=== PATIENT | female | born 1965 | race Caucasian/White ===

== ENCOUNTER 2023-08-10 19:15 | Emergency (ER) | payer MEDICARE, BC, SELFPAY ==
[2023-08-10] VITALS (9 sets, daily range): BP systolic 103–128; BP diastolic 52–83
--- NOTE | 2023-08-10 19:29 | ED.GENMED ---
History of Present Illness
General
Chief Complaint: Allergic Reaction
Source: patient and spouse
Time Seen by Provider: 08/10/23 19:21
Travel History
Have you had any contact with someone who has COVID-19?: No
Do you have any symptoms of coronavirus? Fever > 100 degrees, chills, cough, shortness of breath, sore throat, loss of taste or smell, muscle aches, or headache?: No
History of Present Illness
History of Present Illness:
57-year-old female presents to the emergency room complaining of an allergic reaction. Patient states that she started taking Bactrim for urinary tract infection a couple days ago. Last dose was an hour ago. She began to feel like her face was
burning and she was having tightness in her throat this afternoon. Symptoms progressed after she took the dose this evening. Patient has had allergic reactions to bee stings in the past and states what she is experiencing now feels like that.
Past History
Past History
ED Past Medical History: GERD, Hypercholesterolemia, Hypothyroidism, Psychiatric (Presumed conversion disorder. Bipolar.) and Other (Complicated migraine, kidney stone years ago, epilepsy (?))
ED Past Surgical History: Appendectomy, Gynecological (Hysterectomy 6 years ago. Bladder surgery (ureters ' reimplanted when I was [age].') x 1. Appendectomy as a child.) and Orthopedic (Reconstruction both feet age 17. valgus
deformities.)
Social History
Tobacco: Smoker (2 packs a week)
Alcohol: None
Drug: None
Personal:
Living: with family
Employment: Disabled (had a 'I stroke a few years ago')
Family History
Family History: CAD and Other (Dad with prostate cancer mother with leukemia)
Phy Exam
Physical Exam
Physical Exam:
General: Awake, Alert, Oriented X3. Mildly anxious
Vitals: unremarkable
Head: Atraumatic
Eyes: Pupils equal, EOMI
Throat: Airway intact, no exudates, no angioedema
Neck: Trachea midline
Lungs: Clear and equal b/l
Heart: Regular rate, no murmurs
Abd: Soft, Nontender, No pulsatile mass
Neuro: Nonfocal
Skin: Warm, dry, erythematous
Extremities: pulses equal b/l, no edema
Course
Orders/Labs/Results
Orders:
Orders
08/10/23 19:28
Electrocardiogram (*1) Stat
Reason for Study: Other
Other Reason for Exam: Allergy
Cardiac Monitoring- Treatment ONCE
EKG- Treatment ONCE
0.9% Sodium Chloride 500 ml [Nss] 500 ml IV BOLUS
Dexamethasone Sod Phosphate [Decadron] 10 mg IV NOW STA
Diphenhydramine [Benadryl] 50 mg IV NOW STA
EPINEPHrine PF [Adrenalin] 0.3 mg IM NOW STA
Famotidine [Pepcid] 20 mg IV NOW STA
Vital Signs
Initial and Last Documented VS:
Initial Vital Signs
Temp Pulse Resp BP Pulse Ox
98.3 F 88 20 116/83 99
08/10/23 19:25 08/10/23 19:25 08/10/23 19:25 08/10/23 19:25 08/10/23 19:25
Last Documented Vital Signs
Temp Pulse Resp BP Pulse Ox
98.2 F 78 18 122/68 99
08/10/23 22:10 08/10/23 22:10 08/10/23 22:10 08/10/23 22:10 08/10/23 22:10
MDM/Problems Addressed
Differential Diagnosis Includes:
Allergic reaction, anaphylaxis
MDM/Problems Addressed:
Patient had significant proving of her symptoms with treatment here. She was observed for couple hours without recurrence. Patient discharged on prednisone. Continue Benadryl. EpiPen also prescribed.
*Pulse Oximetry
Patient hypoxic: no
*EKG
Interpreted by ED Provider?: Yes
Interpretation: normal
Heart Rate: 73
Rate: normal
Rhythm: sinus
Ischemia: no ischemia
*Cattle Trader Interpretation
Rate: normal
Interpretation: normal
Rhythm: sinus
*Critical Care Note
Total Time (30-74mins, 75-104mins- exclusive of procedures): Not Applicable
ED Attending Note
-
Portions of this chart may have been created with voice recognition software.� Occasional wrong word or��sound alike� substitutions may have occurred due to the inherent limitations of voice recognition software.
Discharge Plan
Departure
Patient Disposition: Home (Routine Discharge)
Date of Disposition: 08/10/23
Time of Disposition: 21:38
Patient with high blood pressure during this ER visit?: No
Condition: Good
Discharge Problem:
Allergic reaction
Instructions: Allergic Reaction ED
Prescriptions:
New
prednisone 20 mg tablet
40 mg PO DAILY Qty: 8 0RF
epinephrine [EpiPen] 0.3 mg/0.3 mL auto-injector
0.3 mg IM ONCE PRN (Reason: anaphylaxis) Qty: 2 0RF
No Action
phenazopyridine [Pyridium] 100 mg tablet
100 mg PO TID PRN (Reason: pain) Qty: 6 0RF
ascorbic acid (vitamin C) [Vitamin C] 500 mg Tablet
500 mg PO DAILY
amitriptyline 10 mg Tablet
20 mg PO HS
levothyroxine 112 mcg Tablet
112 mcg PO MOTUWETHFRSA
[place] 3 Capsule
1,000 mg PO QID
rosuvastatin 20 mg Tablet
20 mg PO DAILY
zinc 50 mg Capsule
50 mg PO DAILY
fenofibrate 150 mg Capsule
145 mg PO DAILY
omeprazole 20 mg Tablet,Delayed Release (Dr/Ec)
20 mg PO DAILY
cholecalciferol (vitamin D3) [Vitamin D3] 50 mcg (2,000 unit) Capsule
100 mcg PO DAILY
mecobalamin (vitamin B12) 1,000 mcg Tablet,Chewable
1,000 mcg PO DAILY
Referrals:
NONE,* [Active] -
Stand Alone Forms: Return to Work
Activity Restrictions/Additional Instructions:
Stop the Bactrim. Call your doctor tomorrow to have them call in a new antibiotic based on their culture results.
Interventions
Interventions:
*Risk Screen - Suicide Last Done: 08/10/23 19:25
*General Assessment Last Done: 08/10/23 19:25
*Neglect/Abuse Screening Last Done: 08/10/23 19:25
*Nursing Disposition Last Done: 08/10/23 22:12
ED- Cardiac Assessment Last Done: 08/10/23 19:33
ED- Pulmonary Assessment Last Done: 08/10/23 19:33
ED-Skin Assessment Last Done: 08/10/23 19:33
Discharge Date and Time
Discharge Date/Time: 08/10/23 22:13
[2023-08-10] MEDS: BENADRYL 50 MG IV (19:37)
[2023-08-10] MEDS: PEPCID 20 MG IV (19:37)
[2023-08-10] MEDS: DECADRON 10 MG IV (19:37)
[2023-08-10] MEDS: ADRENALIN 0.299999999999999989 MG IM (19:37)
[2023-08-10] MEDS: NSS 500 IV (19:40)
== END 2023-08-10 22:13 | disposition home or self-care (01) ==
LOC: EMR 19:15
PROVIDERS: EMERGENCY PHYSICIAN Emergency Medicine; FAMILY PHYSICIAN Family Medicine
DX: T78.40XA Allergy, unspecified, initial encounter (principal); X58.XXXA Exposure to other specified factors, initial encounter; F17.210 Nicotine dependence, cigarettes, uncomplicated
CPT/HCPCS: 99284; 96374; 96375 ×2; 96372; 93005

== ENCOUNTER 2023-10-25 01:47 | Emergency (ER) | payer MEDICARE, BC, SELFPAY ==
[2023-10-25 01:54] VITALS: BP 131/62
[2023-10-25 02:24] VITALS: BP 135/69
[2023-10-25 02:25] VITALS: BMI 28.2
[2023-10-25 02:38] LABS: Urine Albumin Trace (Neg - Trace); Urine Bilirubin Negative (Negative); Urine Character Slightly Cloudy (Clear); Urine Color Straw; Urine Glucose Negative (Negative); Urine Ketone Negative (Negative); Urine Leukocyte 2+ (Negative); Urine Nitrite Negative (Negative); Urine Occult Blood 4+ (Negative); Urine Urobilinogen Negative (Neg - 1+)
[2023-10-25 02:44] LABS: Urine White Cell >100 /HPF (0-5)
[2023-10-25 02:45] LABS: Urine Bacteria Moderate (Negative)
[2023-10-25 03:07] VITALS: BP 127/72
--- NOTE | 2023-10-25 03:10 | ED.GENMED ---
Addendum entered and electronically signed by Preeti Kendall PA-C 10/28/23 07:14:
urine culture e coli leon sensitivie on cefdinir no treatment chnage
Original Note:
History of Present Illness
General
Chief Complaint: Urinary Symptoms
Source: patient and previous hospital records
Exam Limitations: none
Time Seen by Provider: 10/25/23 02:14
Nursing documentation reviewed up to this point in time: agreed with
Travel History
Have you had any contact with someone who has COVID-19?: No
Do you have any symptoms of coronavirus? Fever > 100 degrees, chills, cough, shortness of breath, sore throat, loss of taste or smell, muscle aches, or headache?: No
History of Present Illness
History of Present Illness:
This is a 58-year-old woman with history of interstitial cystitis, InterStim in place, remote history of bladder surgery with reimplantation of ureters as a child. She does suffer with intermittent urinary tract infections which overall have been
markedly improved with cranberry tablet supplementation. She follows sporadically with urology.
She complains of her typical UTI symptoms including urinary frequency, dysuria, urgency that began yesterday, worse tonight. She denies flank pain, no fever nor chills, no nausea nor vomiting, no diarrhea or constipation.
Previous UTI August of this year.
She began taking Uribel yesterday with mild improvement in dysuria but continues with urinary frequency and urgency.
Past History
Past History
ED Past Medical History: GERD, Hypercholesterolemia, Hypothyroidism, Psychiatric (Presumed conversion disorder. Bipolar.) and Other (Complicated migraine, kidney stone years ago, epilepsy (?))
ED Past Surgical History: Appendectomy, Gynecological (Hysterectomy 6 years ago. Bladder surgery (ureters ' reimplanted when I was [age].') x 1. Appendectomy as a child.) and Orthopedic (Reconstruction both feet age 17. valgus
deformities.)
Social History
Tobacco: Former smoker (2 packs a week)
Alcohol: None
Drug: None
Personal:
Living: with family
Employment: Disabled (had a 'I stroke a few years ago')
Family History
Family History: CAD and Other (Dad with prostate cancer mother with leukemia)
Phy Exam
Physical Exam
Physical Exam:
GENERAL: 58-year-old female appears her stated age, bright and alert, pleasant, appears in no acute distress. is accompanying.
EYE: anicteric
NECK: Supple, nontender, no meningismus, no significant adenopathy.
ENT: oral mucosa is moist. No rhinorrhea.
CARDIAC: Regular rate and rhythm. no murmur.
LUNGS: Clear breath sounds bilaterally, no acute respiratory distress, no wheezes/rales/rhonchi
ABDOMEN: Soft, nondistended, without focal tenderness, no r/g, no cvat. normoactive BS.
NEUROLOGICAL: Alert and oriented x3, no focal neuro deficits. Gait is steady.
SKIN: Warm and dry, normal color, skin intact. No rash.
MUSCULOSKELETAL: No C/C/E. peripheral pulses are full and equal b/l. No palpable tenderness.
PSYCH: Normal and appropriate interaction.
Course
Orders/Labs/Results
Orders:
Orders
10/25/23 02:02
Urinalysis Reflex To Culture Urgent
Date Specimen was Collected: 10/25/23
Time Specimen was Collected: 02:00
Urine Microscopic Reflex Cult Urgent
Urine Culture Urgent
TOBY Source: U
Specimen Description:
Date Specimen was Collected: 10/25/23
Time Specimen was Collected: 02:00
10/25/23 03:09
Cefdinir [Omnicef] 300 mg PO NOW STA
Abnormal Lab Results
10/25/23
02:02
Ur Occult Blood Reflex 4+ A
(Negative)
Leukocyte Esterase Rfl 2+ A
(Negative)
Urine RBC 3-6 A /HPF
(0-2)
Urine WBC (Reflex) >100 A /HPF
(0-5)
Urine Bacteria (Reflex) Moderate A
(Negative)
Vital Signs
Initial and Last Documented VS:
Initial Vital Signs
Temp Pulse Resp BP Pulse Ox
97.7 F 74 20 131/62 99
10/25/23 01:54 10/25/23 01:54 10/25/23 01:54 10/25/23 01:54 10/25/23 01:54
Last Documented Vital Signs
Temp Pulse Resp BP Pulse Ox
97.7 F 78 18 127/72 99
10/25/23 01:54 10/25/23 03:07 10/25/23 03:07 10/25/23 03:07 10/25/23 03:07
MDM/Problems Addressed
Differential Diagnosis Includes:
Concern for UTI, exacerbation of interstitial cystitis.
She is afebrile, overall well in appearance and has had no complaints of flank pain nor fever. Nothing to suggest pyelonephritis nor ureteric stone.
Awaiting urinalysis result.
Chronic conditions affecting care: Other (Interstitial cystitis, prior history of kidney stones, previous bladder/ureteral surgical repair as child.)
*Pulse Oximetry
Patient hypoxic: no
*Critical Care Note
Total Time (30-74mins, 75-104mins- exclusive of procedures): Not Applicable
Update Note
Update Note:
Urinalysis consistent with UTI, greater than 100 WBCs, moderate bacteria.
Urine culture is pending.
Will treat with 7-day course of cefdinir. Patient was treated with cefdinir in August with excellent result.
Prior urine cultures from 2022 showing E. coli�pansensitive is well as Klebsiella pneumonia�pansensitive.
Follow-up with PCP versus urologist as needed.
Continue Uribel and stay well-hydrated on a daily basis.
ED Attending Note
-
Portions of this chart may have been created with voice recognition software.� Occasional wrong word or��sound alike� substitutions may have occurred due to the inherent limitations of voice recognition software.
Discharge Plan
Departure
Patient Disposition: Home (Routine Discharge)
Date of Disposition: 10/25/23
Time of Disposition: 03:10
Patient with high blood pressure during this ER visit?: No
Condition: Good
Discharge Problem:
Acute cystitis
Instructions: Urinary Tract Infection, Adult (DC)
Prescriptions:
New
cefdinir 300 mg capsule
300 mg PO BID Qty: 14 0RF
No Action
phenazopyridine [Pyridium] 100 mg tablet
100 mg PO TID PRN (Reason: pain) Qty: 6 0RF
ascorbic acid (vitamin C) [Vitamin C] 500 mg Tablet
500 mg PO DAILY
amitriptyline 10 mg Tablet
20 mg PO HS
levothyroxine 112 mcg Tablet
112 mcg PO MOTUWETHFRSA
[place] 3 Capsule
1,000 mg PO QID
rosuvastatin 20 mg Tablet
20 mg PO DAILY
zinc 50 mg Capsule
50 mg PO DAILY
fenofibrate 150 mg Capsule
145 mg PO DAILY
omeprazole 20 mg Tablet,Delayed Release (Dr/Ec)
20 mg PO DAILY
cholecalciferol (vitamin D3) [Vitamin D3] 50 mcg (2,000 unit) Capsule
100 mcg PO DAILY
mecobalamin (vitamin B12) 1,000 mcg Tablet,Chewable
1,000 mcg PO DAILY
prednisone 20 mg tablet
40 mg PO DAILY Qty: 8 0RF
epinephrine [EpiPen] 0.3 mg/0.3 mL auto-injector
0.3 mg IM ONCE PRN (Reason: anaphylaxis) Qty: 2 0RF
Referrals:
Stephan Patino DO [[facility]] - Call in 1-3 days for appt
Interventions
Interventions:
*Risk Screen - Suicide Last Done: 10/25/23 01:54
*General Assessment Last Done: 10/25/23 01:54
*Neglect/Abuse Screening Last Done: 10/25/23 01:54
ED- Fall Risk Assessment Last Done: 10/25/23 01:54
*ED COVID-19 Vaccine History Last Done: 10/25/23 01:54
ED-Female Genitourinary Assessment Last Done: 10/25/23 02:33
Discharge Date and Time
Print Language: OCCITAN
[2023-10-25] MEDS: OMNICEF 300 MG PO (03:16)
== END 2023-10-25 03:20 | disposition home or self-care (01) ==
LOC: EMR 01:47
PROVIDERS: EMERGENCY PHYSICIAN Emergency Medicine; FAMILY PHYSICIAN Family Medicine
DX: N30.00 Acute cystitis without hematuria (principal); N30.10 Interstitial cystitis (chronic) without hematuria; Z87.891 Personal history of nicotine dependence; Z87.442 Personal history of urinary calculi
CPT/HCPCS: 99283; 81003; 81015; 87086; 87088; 87186

== ENCOUNTER → 2023-12-29 10:43 | Outpatient (REF) | payer MEDICARE, BC, SELFPAY ==
[2023-12-29 15:41] LABS: Urine Albumin Negative (Neg - Trace); Urine Bilirubin Negative (Negative); Urine Character Clear (Clear); Urine Color Yellow; Urine Glucose Negative (Negative); Urine Ketone Negative (Negative); Urine Leukocyte 1+ (Negative); Urine Nitrite Negative (Negative); Urine Occult Blood Negative (Negative); Urine Specific Gravity 1.015 (<1.030); Urine Urobilinogen Negative (Neg - 1+)
[2023-12-29 15:58] LABS: Urine Red Blood Cell 0-2 /HPF (0-2)
== END ==
LOC: CLAB 10:43
PROVIDERS: ATTENDING PHYSICIAN Nurse Practitioner
DX: N39.0 Urinary tract infection, site not specified (principal)
CPT/HCPCS: 81003; 81015; 87086

== ENCOUNTER → 2024-04-22 07:58 | Outpatient (REF) | payer MEDICARE, BC, SELFPAY | LOC: HWRCS 07:58 | PROVIDERS: ATTENDING PHYSICIAN Internal Medicine Cardiovascular Disease; FAMILY PHYSICIAN Family Medicine | DX: R06.02 Shortness of breath (principal) | CPT/HCPCS: 93306 ==

== ENCOUNTER → 2024-05-18 08:03 | Outpatient (REF) | payer MEDICARE, BC, SELFPAY ==
[2024-05-18 09:21] LABS: % Basophils 1.7 % (0-2); % Eosinophils 4.3 % (0-6); % Immature Granulocytes 0.2 % (0-0.5); % Lymphocytes 44.4 % (20.5-51.1); % Monocytes 5.1 % (1.7-9.3); % Neutrophils 44.3 % (42.2-75.2); Absolute Basophils 0.1 10^3/uL (0-0.2); Absolute Eosinophils 0.3 10^3/uL (0-0.7); Absolute Lymphocytes 2.9 10^3/uL (1.2-3.4); Absolute Monocytes 0.3 10^3/uL (0.1-0.6); Absolute Neutrophils 2.9 10^3/uL (1.4-6.5); Hematocrit 41.7 % (37.0-47.0); Hemoglobin 14.6 g/dL (12.0-16.0); Mean Corpuscular Hgb 31.6 pg (27.0-31.0); Mean Corpuscular Volume 90.3 fL (81.0-99.0); Nucleated Red Blood Cells % 0 %; Platelet Count 273 10^3/uL (130-400); Red Blood Cell Count 4.62 10^6/uL (4.20-5.40); Red Cell Dist. Width 12.5 % (11.5-14.5); White Blood Cell Count 6.5 10^3/uL (4.8-10.8)
[2024-05-18 09:49] LABS: Urine Albumin Negative (Neg - Trace); Urine Bilirubin Negative (Negative); Urine Character Clear (Clear); Urine Color Yellow; Urine Glucose Negative (Negative); Urine Ketone Negative (Negative); Urine Leukocyte Negative (Negative); Urine Nitrite Negative (Negative); Urine Occult Blood Negative (Negative); Urine Specific Gravity 1.005 (<1.030); Urine Urobilinogen Negative (Neg - 1+)
[2024-05-18 09:59] LABS: TSH 1.06 uIU/ml (0.47-4.68)
[2024-05-18 10:00] LABS: ALT (SGPT) 25 U/L (0-35); AST (SGOT) 29 U/L (14-36); Albumin 4.7 g/dl (3.5-5.0); Alkaline Phosphatase 55 U/L (38-126); Blood Urea Nitrogen 19 mg/dl (7-17); Carbon Dioxide 27 mmol/L (22-30); Chloride 104 mmol/L (98-107); Glucose 106 mg/dl (70-99); HDL Cholesterol 62 mg/dl; LDL Cholesterol, Calculated 108 mg/dl; Potassium 4.5 mmol/L (3.5-5.1); Sodium 141 mmol/L (135-145); Total Bilirubin 0.4 mg/dl (0.2-1.3); Total Cholesterol 195 mg/dl (50-199); Triglyceride 127 mg/dl (10-149); Very Low Density Lipoprotein 25 mg/dl (0-30); eGFR 57.52
== END ==
LOC: HWLAB 08:03
PROVIDERS: ATTENDING PHYSICIAN Family Medicine
DX: E78.2 Mixed hyperlipidemia (principal); E03.9 Hypothyroidism, unspecified; R73.03 Prediabetes; Z00.00 Encounter for general adult medical examination without abnormal findings; N28.9 Disorder of kidney and ureter, unspecified
CPT/HCPCS: 36415; 80053; 80061; 81003; 83036; 84443; 85025

== ENCOUNTER → 2024-07-04 10:19 | Outpatient (REF) | payer MEDICARE, BC, SELFPAY ==
[2024-07-04 16:44] LABS: Urine Albumin Negative (Neg - Trace); Urine Bilirubin Negative (Negative); Urine Character Clear (Clear); Urine Color Straw; Urine Glucose Negative (Negative); Urine Ketone Negative (Negative); Urine Leukocyte 2+ (Negative); Urine Nitrite Negative (Negative); Urine Occult Blood 2+ (Negative); Urine Specific Gravity 1.005 (<1.030); Urine Urobilinogen Negative (Neg - 1+)
[2024-07-04 17:10] LABS: Urine Bacteria Moderate (Negative); Urine Urothelial Cell 0-2 /LPF (FEW); Urine White Cell 30-40 /HPF (0-5)
== END ==
LOC: CLAB 10:19
PROVIDERS: ATTENDING PHYSICIAN Urology
DX: N39.0 Urinary tract infection, site not specified (principal)
CPT/HCPCS: 81003; 81015; 87086

== ENCOUNTER 2024-07-24 11:58 | Emergency (ER) | payer MEDICARE, BC, SELFPAY ==
[2024-07-24 12:01] VITALS: BP 143/88
[2024-07-24 12:24] LABS: Urine Albumin 2+ (Neg - Trace); Urine Bilirubin Negative (Negative); Urine Character Very Cloudy (Clear); Urine Color Straw; Urine Glucose Negative (Negative); Urine Ketone Negative (Negative); Urine Leukocyte 2+ (Negative); Urine Nitrite Negative (Negative); Urine Occult Blood 4+ (Negative); Urine Urobilinogen Negative (Neg - 1+)
--- NOTE | 2024-07-24 12:36 | ED.GENMED ---
History of Present Illness
General
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
Time Seen by Provider: 07/24/24 12:27
History of Present Illness
History of Present Illness:
Patient is a 58-year-old woman with history of hyperlipidemia, interstitial cystitis, recurrent UTIs presenting to the emergency department urinary symptoms. Patient states for the past day she has had dysuria hematuria and suprapubic pressure.
This does feel similar to prior UTIs. She has been taking ellura her vitamin which helps with the symptoms. However given the blood she came in for further evaluation. Has never had a kidney stone. No fevers chills. No back pain. No
lightheadedness
Past History
Past History
ED Past Medical History: GERD, Hypercholesterolemia, Hypothyroidism, Psychiatric (Presumed conversion disorder. Bipolar.) and Other (Complicated migraine, kidney stone years ago, epilepsy (?))
ED Past Surgical History: Appendectomy, Gynecological (Hysterectomy 6 years ago. Bladder surgery (ureters ' reimplanted when I was [age].') x 1. Appendectomy as a child.) and Orthopedic (Reconstruction both feet age 17. valgus
deformities.)
Social History
Tobacco: Former smoker (2 packs a week)
Alcohol: None
Drug: None
Personal:
Living: with family
Employment: Disabled (had a 'I stroke a few years ago')
Family History
Family History: CAD and Other (Dad with prostate cancer mother with leukemia)
Phy Exam
Physical Exam
Physical Exam:
GENERAL: in no acute distress
HEENT: normocephalic, extraocular movements intact, moist oral mucosa
NECK: normal inspection
RESPIRATORY: no respiratory distress, clear to auscultation bilaterally
CARDIOVASCULAR: regular rate and rhythm
ABDOMEN/: soft, non-distended, suprapubic tenderness to palpation, no rebound or guarding
EXTREMITIES: non-tender, no edema/swelling
NEUROLOGIC: awake and alert, moves all extremities
SKIN: warm
Course
Orders/Labs/Results
Orders:
Orders
07/24/24 12:10
Urinalysis Reflex To Culture Urgent
Date Specimen was Collected: 07/24/24
Time Specimen was Collected: 12:08
Urine Microscopic Reflex Cult Urgent
Urine Culture Urgent
TOBY Source: U
Specimen Description:
Date Specimen was Collected: 07/24/24
Time Specimen was Collected: 12:08
07/24/24 12:28
CT Abd/pelvis W Iv Cont Urgent
Comment:
Reason For Exam: hematuria
07/24/24 12:45
Basic Metabolic Panel Urgent
Complete Blood Count/With Diff Urgent
07/24/24 14:35
Cefdinir [Omnicef] 300 mg PO NOW STA
Abnormal Lab Results
07/24/24 07/24/24
12:10 12:45
WBC 11.7 H 10^3/uL
(4.8-10.8)
Absolute Neuts (auto) 8.3 H 10^3/uL
(1.4-6.5)
BUN 24 H mg/dl
(7-17)
Glucose 100 H mg/dl
(70-99)
Ur Occult Blood Reflex 4+ A
(Negative)
Leukocyte Esterase Rfl 2+ A
(Negative)
Urine RBC 11-15 A /HPF
(0-2)
Urine WBC (Reflex) >100 A /HPF
(0-5)
Urine Bacteria (Reflex) Moderate A
(Negative)
Urine Albumin (Reflex) 2+ A
(Neg - Trace)
07/24/24 12:45
07/24/24 12:45
Vital Signs
Initial and Last Documented VS:
Initial Vital Signs
Temp Pulse Resp BP Pulse Ox
99.1 F 100 20 143/88 99
07/24/24 12:01 07/24/24 12:01 07/24/24 12:01 07/24/24 12:01 07/24/24 12:01
Last Documented Vital Signs
Temp Pulse Resp BP Pulse Ox
99.1 F 100 20 112/66 99
07/24/24 12:01 07/24/24 12:01 07/24/24 12:01 07/24/24 14:27 07/24/24 14:30
MDM/Problems Addressed
Differential Diagnosis Includes:
58-year-old woman presenting to the emergency department 1 day of dysuria hematuria and suprapubic pressure. Vitals are unremarkable and exam does show suprapubic tenderness. Differential consists of UTI versus kidney stone. Urine pending. Will
obtain blood work and CT scan
*Critical Care Note
Total Time (30-74mins, 75-104mins- exclusive of procedures): Not Applicable
Update Note
Update Note:
Blood work notable for slight elevation in her WBC. BMP negative. Urine is infected. CT scan without any acute abnormality. Will discharge with cefdinir. Will give first dose here.
ED Attending Note
-
Portions of this chart may have been created with voice recognition software.� Occasional wrong word or��sound alike� substitutions may have occurred due to the inherent limitations of voice recognition software.
Discharge Plan
Departure
Patient Disposition: Home (Routine Discharge)
Date of Disposition: 07/24/24
Time of Disposition: 14:33
Patient with high blood pressure during this ER visit?: No
Discharge Problem:
UTI (urinary tract infection)
Instructions: Urinary Tract Infection, Adult (DC)
Prescriptions:
New
cefdinir 300 mg capsule
300 mg PO Q12H 7 Days Qty: 14 0RF
No Action
phenazopyridine [Pyridium] 100 mg tablet
100 mg PO TID PRN (Reason: pain) Qty: 6 0RF
ascorbic acid (vitamin C) [Vitamin C] 500 mg Tablet
500 mg PO DAILY
amitriptyline 10 mg Tablet
20 mg PO HS
levothyroxine 112 mcg Tablet
112 mcg PO MOTUWETHFRSA
[place] 3 Capsule
1,000 mg PO QID
rosuvastatin 20 mg Tablet
20 mg PO DAILY
zinc 50 mg Capsule
50 mg PO DAILY
fenofibrate 150 mg Capsule
145 mg PO DAILY
omeprazole 20 mg Tablet,Delayed Release (Dr/Ec)
20 mg PO DAILY
cholecalciferol (vitamin D3) [Vitamin D3] 50 mcg (2,000 unit) Capsule
100 mcg PO DAILY
mecobalamin (vitamin B12) 1,000 mcg Tablet,Chewable
1,000 mcg PO DAILY
prednisone 20 mg tablet
40 mg PO DAILY Qty: 8 0RF
epinephrine [EpiPen] 0.3 mg/0.3 mL auto-injector
0.3 mg IM ONCE PRN (Reason: anaphylaxis) Qty: 2 0RF
cefdinir 300 mg capsule
300 mg PO BID Qty: 14 0RF
Referrals:
Stephan Patino DO [Family Provider] -
Activity Restrictions/Additional Instructions:
You were seen in the Emergency Department today for a urine infection. While you were here we performed blood work, which was reassuring. We did start you on antibiotics. Please take it as prescribed.
We would like for you to follow up with your primary care physician for further evaluation. If you experience fever, worsening of your symptoms, or develop any other new or concerning symptoms, please return to the Emergency Department immediately.
Please see the attached sheet for additional information.
Interventions
Interventions:
*Risk Screen - Suicide Last Done: 07/24/24 12:39
*General Assessment Last Done: 07/24/24 12:39
*Neglect/Abuse Screening Last Done: 07/24/24 12:39
*ED COVID-19 Vaccine History Last Done: 07/24/24 12:39
ED-Female Genitourinary Assessment Last Done: 07/24/24 12:39
Discharge Date and Time
Print Language: PASHTO
[2024-07-24 12:39] VITALS: BMI 29.7
[2024-07-24 12:40] LABS: Urine Bacteria Moderate (Negative); Urine White Cell >100 /HPF (0-5)
[2024-07-24 12:45] VITALS: BP 112/75
[2024-07-24 13:00] VITALS: BP 128/67
[2024-07-24 13:00] LABS: % Basophils 0.7 % (0-2); % Eosinophils 1.8 % (0-6); % Immature Granulocytes 0.2 % (0-0.5); % Lymphocytes 22.7 % (20.5-51.1); % Monocytes 3.6 % (1.7-9.3); Absolute Basophils 0.1 10^3/uL (0-0.2); Absolute Eosinophils 0.2 10^3/uL (0-0.7); Absolute Lymphocytes 2.7 10^3/uL (1.2-3.4); Absolute Monocytes 0.4 10^3/uL (0.1-0.6); Absolute Neutrophils 8.3 10^3/uL (1.4-6.5); Hematocrit 40.3 % (37.0-47.0); Hemoglobin 14.1 g/dL (12.0-16.0); Mean Corpuscular Hgb 30.7 pg (27.0-31.0); Mean Corpuscular Volume 87.8 fL (81.0-99.0); Mean Platelet Volume 9.7 fL (7.4-10.4); Nucleated Red Blood Cells % 0 %; Platelet Count 238 10^3/uL (130-400); Red Blood Cell Count 4.59 10^6/uL (4.20-5.40); Red Cell Dist. Width 12.2 % (11.5-14.5); White Blood Cell Count 11.7 10^3/uL (4.8-10.8)
[2024-07-24 13:15] LABS: Blood Urea Nitrogen 24 mg/dl (7-17); Calcium 9.4 mg/dl (8.4-10.2); Carbon Dioxide 25 mmol/L (22-30); Chloride 104 mmol/L (98-107); Estimated Creatinine Clearance 65 ml/min; Glucose 100 mg/dl (70-99); Potassium 3.9 mmol/L (3.5-5.1); Sodium 138 mmol/L (135-145); eGFR > 60.00
[2024-07-24 14:27] VITALS: BP 112/66
[2024-07-24] MEDS: OMNICEF 300 MG PO (14:41)
[2024-07-24 14:54] VITALS: BP 112/66
== END 2024-07-24 14:54 | disposition home or self-care (01) ==
LOC: EMR 11:58
PROVIDERS: Student in an Organized Health Care Education/Training Program; EMERGENCY PHYSICIAN Student in an Organized Health Care Education/Training Program; FAMILY PHYSICIAN Family Medicine
DX: N39.0 Urinary tract infection, site not specified (principal); E78.00 Pure hypercholesterolemia, unspecified; E03.9 Hypothyroidism, unspecified; F31.9 Bipolar disorder, unspecified; G43.809 Other migraine, not intractable, without status migrainosus; K21.9 Gastro-esophageal reflux disease without esophagitis; Z87.442 Personal history of urinary calculi; Z87.891 Personal history of nicotine dependence; Z86.73 Personal history of transient ischemic attack (TIA), and cerebral infarction without residual deficits; Z87.440 Personal history of urinary (tract) infections; Z88.5 Allergy status to narcotic agent; Z88.2 Allergy status to sulfonamides
CPT/HCPCS: 99284; 74177; 80048; 81003; 81015; 85025; 87086; Q9967

== ENCOUNTER → 2024-09-12 08:45 | Outpatient (REF) | payer MEDICARE, BC, SELFPAY ==
[2024-09-12 12:57] LABS: ALT (SGPT) 25 U/L (0-35); AST (SGOT) 27 U/L (14-36); Albumin 4.4 g/dl (3.5-5.0); Alkaline Phosphatase 55 U/L (38-126); Blood Urea Nitrogen 19 mg/dl (7-17); Calcium 9.9 mg/dl (8.4-10.2); Carbon Dioxide 30 mmol/L (22-30); Chloride 103 mmol/L (98-107); Glucose 99 mg/dl (70-99); HDL Cholesterol 58 mg/dl; LDL Cholesterol, Calculated 96 mg/dl; Potassium 4.1 mmol/L (3.5-5.1); Sodium 140 mmol/L (135-145); Total Bilirubin 0.5 mg/dl (0.2-1.3); Total Cholesterol 182 mg/dl (50-199); Total Protein 6.9 g/dl (6.3-8.2); Triglyceride 144 mg/dl (10-149); Very Low Density Lipoprotein 28 mg/dl (0-30); eGFR > 60.00
[2024-09-12 13:34] LABS: Glycohemoglobin (HgbA1c) 5.9 % (4.0-5.6)
== END ==
LOC: HWLAB 08:45
PROVIDERS: ATTENDING PHYSICIAN Family Medicine; REFERRING PHYSICIAN Nurse Practitioner
DX: E78.2 Mixed hyperlipidemia (principal); E03.9 Hypothyroidism, unspecified; R73.03 Prediabetes; N39.0 Urinary tract infection, site not specified
CPT/HCPCS: 36415; 80053; 80061; 83036; 84443; 87086

== ENCOUNTER → 2024-09-14 13:48 | Outpatient (REF) | payer MEDICARE, BC, SELFPAY | LOC: HWWDC 13:48 | PROVIDERS: ATTENDING PHYSICIAN Family Medicine | DX: Z12.31 Encounter for screening mammogram for malignant neoplasm of breast (principal) | CPT/HCPCS: 77063; 77067 ==

== ENCOUNTER 2024-09-20 09:28 | Emergency (ER) | payer MEDICARE, BC, SELFPAY ==
[2024-09-20 09:33] VITALS: BP 137/65
--- NOTE | 2024-09-20 09:48 | ED.GENMED ---
History of Present Illness
General
Chief Complaint: Chest Pain
Source: patient
Exam Limitations: none
Time Seen by Provider: 09/20/24 09:46
Nursing documentation reviewed up to this point in time: agreed with
History of Present Illness
History of Present Illness:
59-year-old female with a past medical history of hyperlipidemia, GERD, IBS, pelvic floor dysfunction, tobacco use disorder presents emergency department today with concerns of sudden onset severe chest pain radiating to the back while at work
today. Patient reports that she woke up this morning she generally felt unwell and went to drink a cup of black coffee when she went to work and started to notice these symptoms. In contrast to triage note, patient tells me that she has never had
anything like this before and it does not feel like indigestion. She states that she takes omeprazole every day for her history of indigestion. Patient reports that the pain has lessened now but is still present. She denies any paresthesias in
her upper or lower extremities. Patient states that she did have a brief episode of upper abdominal pain which resolved. She denies any shortness of breath or dizziness. Patient reports that she has no associated nausea or vomiting. Patient
states that she has felt well the past few days up until today. Patient denies any trauma to the chest wall or the back. Patient follows with Dr. Meade who manages her cholesterol.
Past History
Past History
ED Past Medical History: GERD, Hypercholesterolemia, Hypothyroidism, Psychiatric (Presumed conversion disorder. Bipolar.) and Other (Complicated migraine, kidney stone years ago, epilepsy (?))
ED Past Surgical History: Appendectomy, Gynecological (Hysterectomy 6 years ago. Bladder surgery (ureters ' reimplanted when I was [age].') x 1. Appendectomy as a child.) and Orthopedic (Reconstruction both feet age 17. valgus
deformities.)
Social History
Tobacco: Former smoker (2 packs a week)
Alcohol: None
Drug: None
Personal:
Living: with family
Employment: Disabled (had a 'I stroke a few years ago')
Family History
Family History: CAD and Other (Dad with prostate cancer mother with leukemia)
Review of Systems
Review of Systems
All Other Systems: ROS reviewed and negative except as documented in HPI and ROS
Phy Exam
Physical Exam
Physical Exam:
General: Patient is well appearing and in no acute distress; non-toxic
Skin: Warm and dry, no rashes or lesions
Head: Normocephalic, atraumatic
Eyes: Sclera non-icteric. EOMs intact. PERRLA.
Cardiac: Regular rate and rhythm, no murmurs
Peripheral Vascular: No lower extremity swelling or edema, 2+ radial; pulses bilaterally
Pulm: Normal respiratory effort, no wheezes, rales, or rhonchi
Abdomen: No abdominal tenderness to palpation
Neuro: CN II-XII intact, no focal neurologic deficits.
Psychiatric: Appropriate mood and affect.
Scores
Heart Score for Chest Pain Patients
STEMI patient?: No
History: Slightly or Non-Suspicious
ECG: Normal
Age: >45 - <65 years
Risk Factors: 1 or 2 Risk Factors
Troponin: </= Normal Limit
Heart Score for Chest Pain Patients: 2
Heart Score Risk: 2.5% MACE over next 6 weeks
Course
Orders/Labs/Results
Orders:
Orders
09/20/24 09:29
ECG [Electrocardiogram (*1)] Urgent
Reason for Study: Chest Pain
09/20/24 09:30
EKG- Treatment ONCE
09/20/24 10:07
CT Chest/abd/pelvis Angio W/wo Urgent
Comment:
Reason For Exam: sudden onset severe CP radiating to back
09/20/24 10:14
Complete Blood Count/With Diff Urgent
Comprehensive Metabolic Panel Urgent
Lipase Urgent
Troponin I Urgent
09/20/24 13:01
Electrocardiogram (*1) Urgent
Reason for Study: Chest Pain
09/20/24 13:21
Troponin I Urgent
Abnormal Lab Results
09/20/24
10:14
Chloride 108 H mmol/L
(98-107)
BUN 18 H mg/dl
(7-17)
09/20/24 10:14
09/20/24 10:14
Vital Signs
Initial and Last Documented VS:
Initial Vital Signs
Temp Pulse Resp BP Pulse Ox
97.8 F 78 20 137/65 99
09/20/24 09:33 09/20/24 09:33 09/20/24 09:33 09/20/24 09:33 09/20/24 09:33
Last Documented Vital Signs
Temp Pulse Resp BP Pulse Ox
97.8 F 69 18 116/48 98
09/20/24 09:33 09/20/24 14:54 09/20/24 14:54 09/20/24 14:54 09/20/24 14:54
MDM/Problems Addressed
Differential Diagnosis Includes:
ddx include aortic dissection, PE, ACS, GERD, costochondritis
MDM/Problems Addressed:
59-year-old female with past medical history of IBS, GERD, ex-smoker, pelvic floor dysfunction with bladder stimulators in place presents emergency department today with concerns of sudden onset severe chest pain. She states that the pain has
improved since she has been here. CTA of the chest and abdomen negative for aortic dissection or aneurysm. Troponin EKG x 2 undetectable no signs of ischemic changes. Suspect GERD considering symptoms started after cup of coffee. Patient does have
an appointment with her PCP tomorrow and states that she will discuss her symptoms that occurred today. Patient stable for discharge
*Pulse Oximetry
Patient hypoxic: no
*EKG
Interpreted by ED Provider?: Yes
EKG Intrepretation Date: 09/20/24
Interpretation: normal
Heart Rate: 66
Rate: normal
Rhythm: sinus
[place]: normal axis
*Critical Care Note
Total Time (30-74mins, 75-104mins- exclusive of procedures): Not Applicable
Data Reviewed
Review of Other/Old Records Reveals: Records (Reviewed ER physician documentation from 07/24/2024 patient seen for recurrent UTIs)
Source: patient and records
Update Note
Update Note:
12:48 pm--Patient states that her current symptoms are dull and states that they are barely present. Her CTA is negative. Pending repeat troponin and EKG, will discharge home. Patient does have an appointment with her primary care provider to follow
up with tomorrow.
ED Attending Note
-
Portions of this chart may have been created with voice recognition software.� Occasional wrong word or��sound alike� substitutions may have occurred due to the inherent limitations of voice recognition software.
Discharge Plan
Departure
Patient Disposition: Home (Routine Discharge)
Date of Disposition: 09/20/24
Time of Disposition: 14:05
Patient with high blood pressure during this ER visit?: Yes
Condition: Good
Discharge Problem:
Chest pain
Instructions: Chest pain, BLOOD PRESSURE
Prescriptions:
No Action
phenazopyridine [Pyridium] 100 mg tablet
100 mg PO TID PRN (Reason: pain) Qty: 6 0RF
ascorbic acid (vitamin C) [Vitamin C] 500 mg Tablet
500 mg PO DAILY
amitriptyline 10 mg Tablet
20 mg PO HS
levothyroxine 112 mcg Tablet
112 mcg PO MOTUWETHFRSA
Adamant 3 Capsule
1,000 mg PO QID
rosuvastatin 20 mg Tablet
20 mg PO DAILY
zinc 50 mg Capsule
50 mg PO DAILY
fenofibrate 150 mg Capsule
145 mg PO DAILY
omeprazole 20 mg Tablet,Delayed Release (Dr/Ec)
20 mg PO DAILY
cholecalciferol (vitamin D3) [Vitamin D3] 50 mcg (2,000 unit) Capsule
100 mcg PO DAILY
mecobalamin (vitamin B12) 1,000 mcg Tablet,Chewable
1,000 mcg PO DAILY
prednisone 20 mg tablet
40 mg PO DAILY Qty: 8 0RF
epinephrine [EpiPen] 0.3 mg/0.3 mL auto-injector
0.3 mg IM ONCE PRN (Reason: anaphylaxis) Qty: 2 0RF
cefdinir 300 mg capsule
300 mg PO BID Qty: 14 0RF
cefdinir 300 mg capsule
300 mg PO Q12H 7 Days Qty: 14 0RF
Referrals:
Stephan Patino DO [Family Provider] -
Stand Alone Forms: Return to Work
Activity Restrictions/Additional Instructions:
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 Please follow-up with your primary care provider tomorrow with your scheduled appointment.
PLEASE RETURN TO THE EMERGENCY DEPARTMENT SHOULD YOU DEVELOP ANY ACUTE WORSENING OF YOUR SYMPTOMS, SHORTNESS OF BREATH, NAUSEA VOMITING, FAINTING SPELLS, WEAKNESS IN ONE-SIDED BODY VERSUS OTHER, FEVERS OR CHILLS, OR ANY OTHER SIGNS OR SYMPTOMS
WORRISOME TO YOU.
Interventions
Interventions:
*Risk Screen - Suicide Last Done: 09/20/24 09:33
*General Assessment Last Done: 09/20/24 09:33
*Neglect/Abuse Screening Last Done: 09/20/24 09:33
*ED- Fall Risk Assessment Last Done: 09/20/24 10:15
*ED COVID-19 Vaccine History Last Done: 09/20/24 10:15
*Nursing Disposition Last Done: 09/20/24 14:56
ED- Cardiac Assessment Last Done: 09/20/24 10:18
Discharge Date and Time
Discharge Date/Time: 09/20/24 14:56
Print Language: CITIZEN [place]
[2024-09-20 10:13] VITALS: BP 105/51
[2024-09-20 10:15] VITALS: BMI 28.3
[2024-09-20 10:18] VITALS: BP 105/51
[2024-09-20 10:28] LABS: % Basophils 1.7 % (0-2); % Eosinophils 3.8 % (0-6); % Immature Granulocytes 0.3 % (0-0.5); % Monocytes 5.1 % (1.7-9.3); % Neutrophils 48.1 % (42.2-75.2); Absolute Basophils 0.1 10^3/uL (0-0.2); Absolute Eosinophils 0.3 10^3/uL (0-0.7); Absolute Lymphocytes 2.7 10^3/uL (1.2-3.4); Absolute Monocytes 0.3 10^3/uL (0.1-0.6); Absolute Neutrophils 3.1 10^3/uL (1.4-6.5); Hematocrit 39.1 % (37.0-47.0); Hemoglobin 13.5 g/dL (12.0-16.0); Mean Corp Hgb Conc. 34.5 g/dL (33.0-37.0); Mean Corpuscular Volume 89.7 fL (81.0-99.0); Mean Platelet Volume 9.7 fL (7.4-10.4); Nucleated Red Blood Cells % 0 %; Platelet Count 251 10^3/uL (130-400); Red Blood Cell Count 4.36 10^6/uL (4.20-5.40); Red Cell Dist. Width 12.6 % (11.5-14.5); White Blood Cell Count 6.5 10^3/uL (4.8-10.8)
[2024-09-20 10:42] LABS: ALT (SGPT) 22 U/L (0-35); AST (SGOT) 23 U/L (14-36); Albumin 4.1 g/dl (3.5-5.0); Alkaline Phosphatase 69 U/L (38-126); Blood Urea Nitrogen 18 mg/dl (7-17); Calcium 9.6 mg/dl (8.4-10.2); Carbon Dioxide 27 mmol/L (22-30); Chloride 108 mmol/L (98-107); Estimated Creatinine Clearance 63 ml/min; Glucose 99 mg/dl (70-99); Lipase 143 U/L (23-300); Potassium 4.5 mmol/L (3.5-5.1); Sodium 140 mmol/L (135-145); Total Bilirubin 0.4 mg/dl (0.2-1.3); Total Protein 6.6 g/dl (6.3-8.2); eGFR > 60.00
[2024-09-20 10:52] LABS: Troponin I < 0.012 ng/ml
[2024-09-20 11:00] VITALS: BP 113/46
[2024-09-20 13:22] VITALS: BP 111/48
[2024-09-20 13:50] LABS: Troponin I < 0.012 ng/ml
[2024-09-20 14:54] VITALS: BP 116/48
== END 2024-09-20 14:56 | disposition home or self-care (01) ==
LOC: EMR 09:28
PROVIDERS: Physician Assistant; EMERGENCY PHYSICIAN Emergency Medicine; FAMILY PHYSICIAN Family Medicine
DX: R07.89 Other chest pain (principal); R03.0 Elevated blood-pressure reading, without diagnosis of hypertension; K21.9 Gastro-esophageal reflux disease without esophagitis; E78.00 Pure hypercholesterolemia, unspecified; E03.9 Hypothyroidism, unspecified; F31.9 Bipolar disorder, unspecified; K58.9 Irritable bowel syndrome, unspecified; F41.9 Anxiety disorder, unspecified; F32.A Depression, unspecified; Z87.442 Personal history of urinary calculi; Z86.73 Personal history of transient ischemic attack (TIA), and cerebral infarction without residual deficits; Z87.891 Personal history of nicotine dependence; Z79.899 Other long term (current) drug therapy; Z88.5 Allergy status to narcotic agent; Z88.2 Allergy status to sulfonamides; Z91.048 Other nonmedicinal substance allergy status
CPT/HCPCS: 99284; 71275; 74174; 80053; 83690; 84484; 85025; 93005; Q9967

== ENCOUNTER → 2024-09-26 11:00 | Outpatient (REF) | payer MEDICARE, BC, SELFPAY | LOC: CLAB 11:00 | PROVIDERS: ATTENDING PHYSICIAN Urology | DX: N30.10 Interstitial cystitis (chronic) without hematuria (principal) | CPT/HCPCS: 88305 ==

== ENCOUNTER → 2025-02-08 15:06 | Outpatient (REF) | payer MEDICARE, BC, SELFPAY | LOC: HWRAD 15:06 | PROVIDERS: ATTENDING PHYSICIAN Family Medicine | DX: M25.512 Pain in left shoulder (principal) | CPT/HCPCS: 73030 ==

== ENCOUNTER → 2025-02-14 09:07 | Outpatient (REF) | payer MEDICARE, BC, SELFPAY | LOC: PAVMRI 09:07 | PROVIDERS: ATTENDING PHYSICIAN Family Medicine | DX: M75.102 Unspecified rotator cuff tear or rupture of left shoulder, not specified as traumatic (principal) | CPT/HCPCS: 73221 ==

== ENCOUNTER → 2025-02-23 07:13 | Outpatient (REF) | payer MEDICARE, BC, SELFPAY ==
[2025-02-23 09:57] LABS: Hematocrit 39.7 % (37.0-47.0); Hemoglobin 13.6 g/dL (12.0-16.0); Mean Corp Hgb Conc. 34.3 g/dL (33.0-37.0); Mean Corpuscular Volume 89.8 fL (81.0-99.0); Platelet Count 251 10^3/uL (130-400); Red Cell Dist. Width 12.7 % (11.5-14.5)
[2025-02-23 10:22] LABS: Blood Urea Nitrogen 14 mg/dl (7-17); Calcium 10.0 mg/dl (8.4-10.2); Carbon Dioxide 26 mmol/L (22-30); Chloride 108 mmol/L (98-107); Glucose 110 mg/dl (70-99); Potassium 4.2 mmol/L (3.5-5.1); Sodium 141 mmol/L (135-145); eGFR > 60.00
[2025-02-23 10:27] LABS: Nucleated Red Blood Cells % 0 %
== END ==
LOC: HWLAB 07:13
PROVIDERS: ATTENDING PHYSICIAN Specialist; FAMILY PHYSICIAN Family Medicine
DX: Z01.818 Encounter for other preprocedural examination (principal)
CPT/HCPCS: 36415; 80048; 85025; 93005

== ENCOUNTER → 2025-04-26 06:50 | Outpatient (REF) | payer MEDICARE, BC, SELFPAY ==
[2025-04-26 09:44] LABS: ALT (SGPT) 23 U/L (0-35); AST (SGOT) 25 U/L (14-36); Albumin 4.2 g/dl (3.5-5.0); Alkaline Phosphatase 50 U/L (38-126); Blood Urea Nitrogen 13 mg/dl (7-17); Calcium 9.5 mg/dl (8.4-10.2); Carbon Dioxide 29 mmol/L (22-30); Chloride 107 mmol/L (98-107); Glucose 101 mg/dl (70-99); HDL Cholesterol 52 mg/dl; LDL Cholesterol, Calculated 87 mg/dl; Potassium 4.3 mmol/L (3.5-5.1); Sodium 142 mmol/L (135-145); Total Protein 6.5 g/dl (6.3-8.2); Very Low Density Lipoprotein 22 mg/dl (0-30); eGFR > 60.00
[2025-04-26 10:03] LABS: TSH 3.30 uIU/ml (0.47-4.68)
[2025-04-26 10:46] LABS: Glycohemoglobin (HgbA1c) 5.7 % (4.0-5.9)
== END ==
LOC: HWLAB 06:50
PROVIDERS: ATTENDING PHYSICIAN Family Medicine
DX: E03.9 Hypothyroidism, unspecified (principal); E78.2 Mixed hyperlipidemia; R73.03 Prediabetes
CPT/HCPCS: 36415; 80053; 80061; 83036; 84443

== ENCOUNTER → 2025-05-23 11:59 | Outpatient (REF) | payer MEDICARE, BC, SELFPAY | LOC: PAVMRI 11:59 | PROVIDERS: ATTENDING PHYSICIAN Physician Assistant; FAMILY PHYSICIAN Family Medicine | DX: Z98.890 Other specified postprocedural states (principal) | CPT/HCPCS: 73221 ==